=== PATIENT | female | born 1960 | race American Indian/Alaskan Native ===

== ENCOUNTER 2017-05-11 13:26 | Outpatient (CLI) | payer BC | END 2017-05-11 14:30 | disposition home or self-care (01) | LOC: MAMMO 13:26 | DX: Z12.31 Encounter for screening mammogram for malignant neoplasm of breast (principal) | CPT/HCPCS: G0202-TC ==

== ENCOUNTER 2017-05-18 13:20 | Outpatient (CLI) | payer BC | END 2017-05-18 19:09 | disposition home or self-care (01) | LOC: MAMMO 13:20 | DX: R92.8 Other abnormal and inconclusive findings on diagnostic imaging of breast (principal) | CPT/HCPCS: G0206-TC ==